=== PATIENT | female | born 1990 | race Hispanic/Latino ===

== ENCOUNTER 2016-07-15 19:51 | Emergency (ER) | payer OTHER ==
[~2016-07-15] VITALS: Ht 149.9 cm; Wt 44.0 kg
[2016-07-15 19:53] VITALS: BP 106/71; PULSE 88; RESP 16; O2SAT 100
[2016-07-15 20:47] LABS: BASOPHILS % (AUTO) 0.2 % (0-3); EOSINOPHILS % (AUTO) 0.8 % (0-5); MONOCYTES % (AUTO) 5.9 % (4-12); Mean Corpuscular Hemoglobin 27.8 pg (27.0-35.0); Mean Corpuscular Volume 82.5 fL (81-100); NEUTROPHILS % (AUTO) 68.2 % (40-74); Platelet Count 190 bil/L (150-400)
--- NOTE | 2016-07-15 22:18 | ED.REPORT ---
HPI- Female Date of Service July 15, 2016 ED Provider: Donna Montgomery MD Pt is a 26 y/o female presenting to the ED c/o abdominal pain and vaginal spotting onset 2 weeks ago. The patient took the Plan B pill 2 weeks ago and 1 day afterwards began experiencing vaginal spotting which has persisted. Today, she began to experience abdominal cramping. She is not on any control medication at the moment. Pt denies fever, chills, nausea, vomiting. She had cold-like symptoms recently as well. She denies IV drug use. She take Tylenol about once per month for migraines. Nursing Notes Stated Complaint: ABDOMINAL PAIN Chief Complaint: Female Abdominal Pain Nursing Notes Reviewed: Yes Allergies: Coded Allergies: No Known Allergies (Unverified , 07/15/16) General Time Seen by MD: 22:17 Chief Complaint Abdominal pain... Hx Obtained From: Patient Arrived By: Walk-in Sudden in Onset?: Yes Onset Occurred: More than a week ago... (2 weeks) Symptom Duration: Since onset Location: : Abdomen lower: Abdomen upper Quality: Cramping Severity: Current: Mild Severity: Maximum: Moderate Similar Sx Previous: No Past Medical History Past Medical History Depression Migraines Past Surgical History None reported Smoking History Unknown if Ever Smoker Social History Drug Use: Denies drug use Ambulatory Status Independent Review of Systems Constitutional: Denies: Chills, Fever GI: Reports: Abdominal pain, Denies: Diarrhea, Nausea, Vomiting Female: Reports: Vaginal bleeding - abnl, Denies: Vaginal discharge Complete sys rev & neg: except as marked. Physical Exam Initial Vital Signs Vital Signs (First) Date Time Temp Pulse Resp B/P Pulse Ox O2 Delivery O2 Flow Rate FiO2 07/15/16 19:53 36.5 88 16 106/71 100 Room Air Initial VS: Reviewed, Vital signs normal Head / Eyes: Atraumatic, Normocephalic, PERRL ENT: Mucous membranes moist, Conjunctiva normal, No scleral icterus Neck: Supple, Full range of motion Respiratory: Breath sounds normal, Clear to auscultation, No respiratory distress Cardiovascular: Regular rate & rhythm, Heart sounds normal, Intact distal pulses Extremities: Vascular intact, Neuro intact, No swelling, No tenderness Skin: Warm, Dry, No cyanosis Neurologic: Alert, Oriented, Nonfocal Psychiatric: Mood/affect normal, Behavior normal, Normal thought content Female Genitourinary: Exam deferred General/Constitutional: Awake, Alert, No acute distress, Well appearing, Well developed, Well hydrated, Well nourished, Cooperative, Not toxic appearing Abdomen: Atraumatic, Soft, No guarding, No rebound, BS normoactive, No distention, No palpable mass Mild tenderness suprapubic and low pelvic Interpretation & Diagnostics Lab Results Interpretation Result Diagram: 07/15/16203407/15/162034 Test 07/15/16 20:35 07/15/16 21:50 White Blood Count 10.1th/mm3 (3.8-10.1) Red Blood Count 4.46mil/mm3 (3.90-5.20) Hemoglobin 12.4g/dL (12.0-15.6) Hematocrit 36.8% (35.0-46.0) Mean Corpuscular Volume 82.5fL (81-100) Mean Corpuscular Hemoglobin 27.8pg (27.0-35.0) Mean Corpuscular Hemoglobin Concent 33.7% (32.0-37.0) Red Cell Distribution Width 13.1% (12.3-15.4) Platelet Count 190bil/L (150-400) Neutrophils (%) (Auto) 68.2% (40-74) Lymphocytes (%) (Auto) 24.8% (14-46) Monocytes (%) (Auto) 5.9% (4-12) Eosinophils (%) (Auto) 0.8% (0-5) Basophils (%) (Auto) 0.2% (0-3) Sodium Level 139mEq/L (134-144) Potassium Level 3.9mEq/L (3.5-5.2) Chloride Level 103mEq/L (97-108) Carbon Dioxide Level 23mmol/L (18-29) Blood Urea Nitrogen 9mg/dL (6-20) Creatinine 0.54mg/dL (0.57-1.00) Estimat Glomerular Filtration Rate 197mL/min (>59) Glucose Level 112mg/dL (60-99) Calcium Level 9.4mg/dL (8.5-10.1) Magnesium Level 2.0mg/dL (1.6-2.6) Total Bilirubin 0.3mg/dL (0.0-1.2) Aspartate Amino Transf (AST/SGOT) 92U/L (0-50) Alanine Aminotransferase (ALT/SGPT) 51U/L (0-32) Alkaline Phosphatase 45U/L (25-150) Total Protein 7.5g/dL (6.4-8.4) Albumin 4.4g/dL (3.4-5.0) Lipase 37U/L (13-60) Hold Sweet Top Tube Received (Received) Urine Color Dark yellow (YELLOW) Urine Appearance Hazy (CLEAR,HAZY) Urine pH 7.0 (5.0-8.0) Urine Specific [place] 1.029 (1.003-1.035) Urine Protein 30mg/dL (NEG,TRACE) Urine Glucose (UA) Negativemg/dL (NEGATIVE) Urine Ketones Negativemg/dL (NEGATIVE) Urine Occult Blood Large (NEGATIVE) Urine Nitrite Negative (NEGATIVE) Urine Bilirubin Negative (NEGATIVE) Urine Urobilinogen Normalmg/dL (NORMAL) Urine Leukocyte Esterase Negative (NEGATIVE) Urine RBC >50/hpf (0-2) Urine WBC 0-5/hpf (0-5) Urine Epithelial Cells Moderate/hpf (NONE-MOD) Urine Crystals None seen (NONE SEEN) Urine Bacteria Few/hpf (NONE-FEW) Urine Hyaline Casts None/lpf (NONE) Urine Granular Casts None seen (NONE SEEN) Urine Waxy Casts None seen (NONE SEEN) Urine Red Blood Cell Casts None seen (NONE SEEN) Urine White Blood Cell Casts None seen (NONE SEEN) Urine Mucus Present (None Seen) Urine Trichomonas None seen (NONE SEEN) Urine Yeast None (NONE SEEN) Urine Culture Reflexed Not indicated Hold Urine Received (Received) Re-Eval/Medical Decision Re-Evaluation/Progress : Time of Eval: 22:27 Re-Evaluation/Progress Note: Pt rechecked. Informed pt of plan for treatment. Pt understands and agrees with plan for treatment. F/U instructions and RTER warnings given. All questions addressed. Counseled Regarding: Diagnosis, Lab results, Need for follow-up, When/why to return to ED Discharge & Departure Impression: Primary Impression: Menstrual cramps Additional Impressions: Not currently Elevated liver function tests Disposition: Home Discharge Condition All VS Reviewed: Yes Condition: Stable Patient Instructions: Acute Abdominal Pain (ED) Additional Instructions: I suspect that you are experiencing menstrual cramps, 2 weeks after plan B. Vaginal spotting is normal to experience after taking the Plan B pill. Your labs were normal other than the mildly elevated liver tests which is nonspecific and likely not dangerous for someone in your healthy condition. Talk with your primary doctor about repeating the liver studies in 1-2 months to make sure they have returned to normal. Take 600 mg Ibuprofen every 6 hours as needed for pain or discomfort. Return to the emergency department for any new or worsening symptoms. Follow-up with your primary care doctor next week. Referrals: [facility] (PCP) Scribe Attestation Portions of this note were transcribed by Cesar Bennett. I, Dr. Montgomery personally performed the history, physical exam and medical decision-making; I reviewed and confirmed the accuracy of the information in the transcribed note. Signed by Pietro Sharpe, 07/15/16 - [phone] copies to: [facility] Donna Montgomery MD July 15, 2016 22:18 CESAR BENNETT July 15, 2016 22:26
[2016-07-15 22:36] VITALS: BP 110/70; PULSE 82; RESP 16; O2SAT 99
[2016-07-15 22:50] LABS: APPEARANCE,URINE HAZY (CLEAR,HAZY); COLOR,URINE DARK YELLOW (YELLOW); OCCULT BLOOD,URINE LARGE (NEGATIVE); UROBILINOGEN,URINE NORMAL (NORMAL)
== END 2016-07-15 22:37 | disposition home or self-care (01) ==
LOC: SED 19:51
DX: N94.6 Dysmenorrhea, unspecified (principal); R94.5 Abnormal results of liver function studies
CPT/HCPCS: 36415; 80053; 81000; 81025; 83690; 83735; 85025; 99283; G0463